=== PATIENT | female | born 1990 | race Caucasian/White ===

== ENCOUNTER → 2016-08-30 | Outpatient (CLI) | payer BC ==
[2016-08-30 09:07] LABS: CHLORIDE,CL 104 mmol/L (98-110); SODIUM,NA 135 mmol/L (136-146)
== END ==
LOC: MW.CHIM 08:19
PROVIDERS: ATTEND Internal Medicine
DX: E11.9 Type 2 diabetes mellitus without complications (principal); I10 Essential (primary) hypertension
CPT/HCPCS: 36415; 80048; 83036

== ENCOUNTER 2017-08-01 08:37 | Emergency (ER) | payer BC, MEDICAID, OTHER ==
--- NOTE | 2017-08-01 09:35 | EDM.PDOC ---
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 The patient had an IUD placed last March here and [facility] and initially was having some periods but since October has not had a period with the IUD in place. Patient did not do a home test. Patient says that she has not had any symptoms such as nausea vomiting breast tenderness or movement. She has no abdominal pain whatsoever and has no STD risks. She has had no irregular vaginal bleeding or discharge. She is eating and drinking normally and has no systemic complaints. Is here because she is concerned about . Review of systems: As per history of present illness and below otherwise all systems reviewed and negative. Past medical history: As per history of present illness and as reviewed below otherwise noncontributory. Surgical history: As per history of present illness and as reviewed below otherwise noncontributory. Social history: No reported history of drug or alcohol abuse. Family history: As per history of present illness and as reviewed below otherwise noncontributory. Physical exam: Gen.: Well-developed well-nourished obese female who is nontoxic and moves easily in the ED. Vital signs of an reviewed by me HEENT: Atraumatic, normocephalic, negative for conjunctival pallor or scleral icterus, mucous membranes moist, throat clear, neck supple, nontender, trachea midline. Lungs: Clear to auscultation, breath sounds equal bilaterally, chest nontender. Heart: S1S2, regular rate and rhythm no overt murmurs Abdomen: Soft, nondistended, nontender. Negative for masses or hepatosplenomegaly. NABS Pelvis: Stable nontender. Genitourinary: Deferred. Rectal: Deferred. Extremities: Atraumatic, negative for cords or calf pain. Neurovascular unremarkable. Neuro: Awake, alert, oriented. Cranial nerves II through XII unremarkable. Cerebellum unremarkable. Motor and sensory unremarkable throughout. Exam nonfocal. 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 She agrees with proceeding to do the ultrasound at this point as her dates are unknown and she will be available once that result is available. 1020: Ultrasound contacted me immediately after bringing the patient back and tells me that the patient is a term 37-1/2 weeks. Patient is aware of this test result and I have visually inspected her perineum which demonstrates no evidence of any cord prolapse or any body parts and there is clear fluid on the perineum and no gross bleeding. Sandy Snyder was recontacted and the patient will go to labor and delivery immediately. UA and quantitative hCG results are unavailable at this time but the patient will be immediately moved to labor and delivery. Formal ultrasound results is also not available at this time but can be followed up on L&D. Impression: Term with history of IUD Definitive disposition and diagnosis as appropriate pending reevaluation and review of above. - Related Data Allergies Allergy/AdvReac Type Severity Reaction Status Date / Time Penicillins Allergy Nausea Verified 08/01/17 09:08 Home Meds: Home Meds . 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 ED EXAM, GENERAL - Physical Exam Exam: See Below (See dictation) Course - Vital Signs Last Recorded V/S: Last Vital Signs Temp 36.4 C 08/01/17 09:05 Pulse 98 08/01/17 09:05 Resp 18 08/01/17 09:05 BP 171/96 H 08/01/17 09:05 Pulse Ox 98 08/01/17 09:05 - Orders/Labs/Meds Orders: Active Orders 24 hr Category Date Time Status OB 2 Or 3 Tri Sgl 1st Gest [US] Stat Exams 08/01/17 09:37 Ordered HCG QUANTITATIVE,SERUM [CHEM] Stat Lab 08/01/17 09:46 Received UA W/MICROSCOPIC [URIN] Stat Lab 08/01/17 09:36 Ordered Labs: Laboratory Tests 08/01/17 08/01/17 Range/Units 09:14 09:46 WBC 10.00 (4.0-11.0) K/uL RBC 5.14 (4.30-5.90) M/uL Hgb 14.3 (12.0-16.0) g/dL Hct 40.9 (36.0-46.0) % MCV 79.6 L (80.0-98.0) fL MCH 27.8 (27.0-32.0) pg MCHC 35.0 (31.0-37.0) g/dL RDW Std Deviation 39.2 (28.0-62.0) fl RDW Coeff of Adolfo 14 (11.0-15.0) % Plt Count 178 (150-400) K/uL MPV 10.50 (7.40-12.00) fL Neut % (Auto) 68.9 (48.0-80.0) % Lymph % (Auto) 24.0 (16.0-40.0) % [place] % (Auto) 6.4 (0.0-15.0) % Eos % (Auto) 0.6 (0.0-7.0) % Baso % (Auto) 0.1 (0.0-1.5) % Neut # (Auto) 6.9 H (1.4-5.7) K/uL Lymph # (Auto) 2.4 (0.6-2.4) K/uL [place] # (Auto) 0.6 (0.0-0.8) K/uL Eos # (Auto) 0.1 (0.0-0.7) K/uL Baso # (Auto) 0.0 (0.0-0.1) K/uL Nucleated RBC % 0.0 /100WBC Nucleated RBCs # 0 K/uL Urine HCG, Qual POSITIVE (NEGATIVE) Departure - Departure Time of Disposition: 10:22 Disposition: DC/Tfer to Other 70 Condition: Good Clinical Impression: Term - Discharge Information Referrals: PCP,None [Primary Care Provider] - Forms: ED Department Discharge - My Orders Last 24 Hours: My Active Orders 08/01/17 09:36 UA W/MICROSCOPIC [URIN] Stat 08/01/17 09:37 OB 2 Or 3 Tri Sgl 1st Gest [US] Stat 08/01/17 09:46 HCG QUANTITATIVE,SERUM [CHEM] Stat - Assessment/Plan Last 24 Hours: My Active Orders 08/01/17 09:36 UA W/MICROSCOPIC [URIN] Stat 08/01/17 09:37 OB 2 Or 3 Tri Sgl 1st Gest [US] Stat 08/01/17 09:46 HCG QUANTITATIVE,SERUM [CHEM] Stat
--- NOTE | 2017-08-01 11:08 | US ---
Pelvic/OB sonogram History: Ruptured membranes I needs: Single living intrauterine fetus in vertex presentation, brow down with an anterior placenta and no evidence of central previa. measurements are internally concordant and calculated to be 7 weeks 5 days. Estimated weight is 3458 g. Is a paucity of amniotic fluid, which would be exp ected. JAEL is only 5.97. The normal active heart rate of 147 bpm. Impression: Term fetus in vertex presentation as described. Paucity of amniotic fluid consistent with ruptured membranes
== END 2017-08-01 10:24 | disposition other institution (70) ==
LOC: MW.ED 08:37
DX: O80 Encounter for full-term uncomplicated delivery (principal); O24.113 Pre-existing type 2 diabetes mellitus, in pregnancy, third trimester; E11.9 Type 2 diabetes mellitus without complications; O99.333 Smoking (tobacco) complicating pregnancy, third trimester; F17.210 Nicotine dependence, cigarettes, uncomplicated; Z88.0 Allergy status to penicillin; Z3A.37 37 weeks gestation of pregnancy
CPT/HCPCS: 36415; 76805; 76805-26; 81025; 84702; 85025; 99284; 99284-25

== ENCOUNTER 2017-08-01 11:08 | Inpatient (IN) | payer BC, MEDICAID, OTHER ==
[2017-08-01] MEDS ORDERED: NIFEdipine 10 MG Cap PO PRN (11:23)
[2017-08-01] MEDS ORDERED: Water For Irrigation,Sterile 1,000 ML Container IRR PRN (11:43)
[2017-08-01] MEDS ORDERED: Sodium Chloride 0.9% 10 ML Syringe FLUSH PRN (11:43)
[2017-08-01] MEDS ORDERED: Misoprostol 200 MCG Tab PO PRN (11:43)
[2017-08-01] MEDS ORDERED: Lidocaine 1% 50 ML MDV INJECT PRN (11:43)
[2017-08-01] MEDS ORDERED: Nalbuphine 10 MG/1 ML Vial IVPUSH PRN (11:43)
[2017-08-01] MEDS ORDERED: Carboprost Tromethamine 250 MCG/1 ML Amp IM PRN (11:43)
[2017-08-01] MEDS ORDERED: Sodium Chloride 0.9% 2.5 ML Syringe FLUSH PRN (11:43)
[2017-08-01] MEDS ORDERED: Butorphanol 1 MG/ML SDV IVPUSH PRN (11:43)
[2017-08-01] MEDS ORDERED: Methylergonovine 0.2 MG/1 ML Amp IM PRN (11:43)
[2017-08-01] MEDS ORDERED: Oxytocin/0.9 % Sodium Chloride 30 UNIT/500 ML BAG IV SCH (11:45)
[2017-08-01] MEDS ORDERED: Clindamycin Phosphate in D5W 900 MG in Premix Bag 1 BAG IV SCH ×2 (11:45)
[2017-08-01] MEDS ORDERED: Lactated Ringers 1,000 ML IV SCH (11:45)
[2017-08-01] MEDS ORDERED: Clindamycin Phosphate in D5W 50 ML IV ONE (11:52)
[2017-08-01] MEDS ORDERED: fentaNYL 100 MCG/2 ML SDV ONE (12:58)
[2017-08-01] MEDS ORDERED: ePHEDrine 50 MG/ML SDV ONE (13:21)
--- NOTE | 2017-08-01 13:38 | PCM.PREANE ---
Preanesthetic Assessment - Anesthesia/Transfusion/Family Hx Anesthesia History: Prior Anesthesia Without Reaction - Review of Systems General: No Symptoms Pulmonary: No Symptoms Cardiovascular: No Symptoms Gastrointestinal: No Symptoms Neurological: No Symptoms Other: Reports: None - Physical Assessment Blood Pressure: 143/93 Vital Signs: Last Vital Signs Temp Pulse Resp BP 143/93 H 08/01/17 12:01 Pulse Ox Height: 5 ft 5 in Weight: 142.882 kg ASA Class: 3 Mental Status: Alert & Oriented x3 Airway Class: Mallampati = 2 Dentition: Reports: Normal Dentition Thyro-Mental Finger Breadths: 3 Mouth Opening Finger Breadths: 3 ROM/Head Extension: Limited/Partial Lungs: Clear to Auscultation, Normal Respiratory Effort Cardiovascular: Regular Rate, Regular Rhythm - Lab Values: Laboratory Last Values POC Glucose 91 mg/dL (60-110) 08/01/17 12:30 Hemoglobin A1c 7.1 % (0.0-6.0) H 08/01/17 12:05 Membrane Rupture POSITIVE 08/01/17 11:01 HIV 1&2 Ag/Ab, 4th Gen 0.1 (<1.0) 08/01/17 12:05 Blood Type A POSITIVE 08/01/17 12:05 Antibody Screen NEGATIVE 08/01/17 12:05 - Allergies Allergies/Adverse Reactions: Allergies Allergy/AdvReac Type Severity Reaction Status Date / Time Penicillins Allergy Nausea Verified 08/01/17 09:08 - Anesthesia Plan Free Text/Narrative:: Pt arrived today in labor, no care as she did not know she was . 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 [No Known Home Meds] 08/01/17 [History] - CURRENT (IN HOUSE) MEDS Current Meds: Current Medications Butorphanol Tartrate (Stadol) 1 mg IVPUSH Q1H PRN PRN Reason: Pain Last Admin: 08/01/17 12:21 Dose: 1 mg Carboprost Tromethamine (Hemabate Ds) 250 mcg IM ASDIRECTED PRN PRN Reason: Post Hemorrhage Clindamycin Phosphate 900 mg/ (Premix) 50 mls @ 100 mls/hr IV Q8H ONIEL Last Admin: 08/01/17 12:06 Dose: 100 mls/hr Lactated Ringer's (Ringers, Lactated) 1,000 mls @ 150 mls/hr IV ASDIRECTED ONIEL Oxytocin/Sodium Chloride (Oxytocin 30 Unit/500 Ml-Ns) 30 unit in 500 mls @ 500 mls/hr IV TITRATE ONIEL Lidocaine HCl (Xylocaine 1%) 50 ml INJECT .ONCE PRN PRN Reason: Laceration repair Methylergonovine Maleate (Methergine) 0.2 mg IM ASDIRECTED PRN PRN Reason: Post Hemorrhage Misoprostol (Cytotec) 200 mcg PO .ONCE PRN PRN Reason: Post Hemorrhage Nalbuphine HCl (Nubain) 10 mg IVPUSH Q1H PRN PRN Reason: Pain (severe 7-10) Nifedipine (Procardia) 30 mg PO BID PRN PRN Reason: Hypertension Last Admin: 08/01/17 12:01 Dose: 30 mg Sodium Chloride (Saline Flush) 10 ml FLUSH ASDIRECTED PRN PRN Reason: Keep Vein Open Sodium Chloride (Saline Flush) 2.5 ml FLUSH ASDIRECTED PRN PRN Reason: Keep Vein Open Sterile Water (Sterile Water For Irrigation) 1,000 ml IRR ASDIRECTED PRN PRN Reason: delivery Discontinued Medications Ephedrine Sulfate (Ephedrine Sulfate) Confirm Administered Dose 50 mg .ROUTE .STK-MED ONE Stop: 08/01/17 13:22 Fentanyl (Sublimaze) Confirm Administered Dose 100 mcg .ROUTE .STK-MED ONE Stop: 08/01/17 12:59 Clindamycin Phosphate (Cleocin In D5w) Confirm Administered Dose 50 mls @ as directed IV .STK-MED ONE Stop: 08/01/17 11:53
[2017-08-01] MEDS ORDERED: Ibuprofen 400 MG Tab PO PRN (13:58)
[2017-08-01] MEDS ORDERED: Docusate Sodium 100 MG Cap PO PRN (13:58)
[2017-08-01] MEDS ORDERED: oxyCODONE 5 MG Tab PO PRN (13:58)
[2017-08-01] MEDS ORDERED: Lanolin 100% Cream 7 GM Tube TOP PRN (13:58)
[2017-08-01] MEDS ORDERED: Acetaminophen 500 MG Tab PO PRN ×2 (13:58)
[2017-08-01] MEDS ORDERED: Benzocaine/Menthol 20%-0.5% Spray 78 GM Cannister TOP PRN (13:58)
[2017-08-01] MEDS ORDERED: Witch Hazel Medicated Pads 40/Jar TOP PRN (13:58)
[2017-08-01] MEDS ORDERED: Bisacodyl 10 MG Supp RECTAL PRN (13:58)
[2017-08-01] MEDS ORDERED: Ibuprofen 800 MG Tab PO PRN (13:58)
--- NOTE | 2017-08-01 14:05 | PCM.LDHP ---
L&D History of Present Illness - General Date of Service: 08/01/17 Admit Problem/Dx: Admission Diagnosis/Problem Admission Diagnosis/Problem 08/01/17 14:00 27yo Comes to the ER today due to feeling funny and having a gush of fluid at 0645 this am. Ultrasound in ER noted SIUP 39 2/7 cephalic presentation. Trans to L&D. OB labs drawn. PCN allergy and Clindamycin given for GBS unknown. Pt is a Type II DM untreated, daily smoker, last smoked THC 5 mon ago, and ETOH occ. EDC by [employer] u/[facility] 01/03/2018. Reports did not know she was . Source of Information: Patient History Limitations: Reports: No Limitations - History of Present Illness Improves with: Reports: None Worsens with: Reports: None Associated Symptoms: Reports: N - Related Data Allergies/Adverse Reactions: Allergies Allergy/AdvReac Type Severity Reaction Status Date / Time Penicillins Allergy Nausea Verified 08/01/17 09:08 Home Medications: Home Meds . 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: Musculoskeletal History: Reports: None Neurological History: Reports: None Psychiatric History: Reports: None Endocrine/Metabolic History: Reports: Diabetes, Type II, Obesity/BMI 30+ (Super Morbid Obesity) Hematologic History: Reports: None Immunologic History: Reports: None Oncologic (Cancer) History: Reports: None Dermatologic History: Reports: None Social & Family History - Family History Family Medical History: Noncontributory - Tobacco Use Smoking Status *Q: Current Some Day Smoker Years of Tobacco use: 6 Packs/Tins Daily: 0.2 - Caffeine Use Caffeine Use: Reports: Soda - Recreational Drug Use Recreational Drug Use: No H&P Review of Systems - Review of Systems: Review Of Systems: See Below General: Reports: No Symptoms HEENT: Reports: No Symptoms Pulmonary: Reports: No Symptoms Cardiovascular: Reports: No Symptoms Gastrointestinal: Reports: No Symptoms Genitourinary: Reports: No Symptoms Musculoskeletal: Reports: No Symptoms Skin: Reports: No Symptoms Psychiatric: Reports: No Symptoms Neurological: Reports: No Symptoms Hematologic/Lymphatic: Reports: No Symptoms Immunologic: Reports: No Symptoms L&D Exam - Exam Exam: See Below - Vital Signs Vital Signs: Last Vital Signs Temp Pulse Resp BP 143/93 H 08/01/17 13:38 Pulse Ox Weight: 142.882 kg - OB Specific Contraction Intensity: Mild to Moderate Movement: Active Heart Tones: Present Heart Rate (FHR) Variability: Moderate (6-25 bmp) Presentation: Vertex (pre todays ultrasound) - Lopez Score Lopez Score Cervix Position: Anterior Lopez Score Consistency: Soft Lopez Score Effacement: >80% Lopez Score Dilation: 3-4 cm Lopez Score Infant's Station: -2 Lopez Score Total: 10 - Exam General: Alert, Oriented, Cooperative HEENT: Hearing Intact Lungs: Clear to Auscultation, Normal Respiratory Effort Cardiovascular: Regular Rate, Regular Rhythm, Normal S1, Normal S2 GI/Abdominal Exam: Soft, Non-Tender, No Organomegaly (gravid) Rectal Exam: Deferred Genitourinary: Normal external exam, Cervical dilitation Back Exam: Full Range of Motion Extremities: Normal Range of Motion, Non-Tender, No Pedal Edema, Normal Capillary Refill Skin: Warm, Dry, Intact Neurological: Reflexes Equal Bilateral, Normal Gait, Normal Speech, Normal Tone Psychiatric: Alert, Normal Affect, Normal Mood - Patient Data Lab Results Last 24 hrs: Laboratory Results - last 24 hr 08/01/17 08/01/17 08/01/17 Range/Units 11:01 12:05 12:05 POC Glucose (60-110) mg/dL Hemoglobin A1c (0.0-6.0) % Membrane Rupture POSITIVE HIV 1&2 Ag/Ab, 4th Gen 0.1 (<1.0) Blood Type A POSITIVE Antibody Screen NEGATIVE 08/01/17 08/01/17 Range/Units 12:05 12:30 POC Glucose 91 (60-110) mg/dL Hemoglobin A1c 7.1 H (0.0-6.0) % Membrane Rupture HIV 1&2 Ag/Ab, 4th Gen (<1.0) Blood Type Antibody Screen - Problem List (1) Supervision of normal IUP (intrauterine ) in multigravida SNOMED Code(s): 100312459, 602807002 ICD Code: Z34.80 - ENCOUNTER FOR SUPRVSN OF NORMAL , UNSP TRIMESTER Status: Acute Priority: High Current Visit: Yes Qualifiers: Trimester: third trimester Qualified Code(s): Z34.83 - Encounter for supervision of other normal , third trimester (2) SROM (spontaneous rupture of membranes) SNOMED Code(s): 862935414 ICD Code: [id number] - Status: Acute Priority: High Current Visit: Yes Problem List Initiated/Reviewed/Updated: Yes Orders Last 24hrs: Active Orders 24 hr Category Date Time Status Blood Glucose Check, Bedside [RC] ASDIRECTED Care 08/01/17 11:26 Inactive Heart Tones [RC] CONTINUOUS Care 08/01/17 11:43 Inactive Non Stress Test [RC] PER UNIT ROUTINE Care 08/01/17 11:43 Inactive May Shower [RC] ASDIRECTED Care 08/01/17 11:43 Inactive May Shower [RC] ASDIRECTED Care 08/01/17 13:58 Ordered Notify Provider [RC] PRN Care 08/01/17 11:43 Inactive Up ad Apryl [RC] ASDIRECTED Care 08/01/17 11:43 Inactive Up ad Apryl [RC] ASDIRECTED Care 08/01/17 13:58 Ordered Vaginal Exam [RC] PRN Care 08/01/17 11:43 Inactive Vital Signs [RC] PER UNIT ROUTINE Care 08/01/17 11:43 Inactive Vital Signs [RC] PER UNIT ROUTINE Care 08/01/17 13:58 Ordered Regular Diet [DIET] Diet 08/01/17 Dinner Ordered HEPATITIS B SURFACE ANTIGEN [REF] Routine Lab 08/01/17 12:05 Stop Req RPR [REF] Routine Lab 08/01/17 12:05 Stop Req RUBELLA ANTIBODY, IGG [REF] Routine Lab 08/01/17 12:05 Stop Req Acetaminophen [Tylenol Extra Strength] Med 08/01/17 13:58 Ordered 1,000 mg PO Q4H PRN Acetaminophen [Tylenol Extra Strength] Med 08/01/17 13:58 Ordered 500 mg PO Q4H PRN Benzocaine/Menthol [Dermoplast Pain Relief 20%-0.5% Med 08/01/17 13:58 Ordered [place]] 78 gm TOP ASDIRECTED PRN Bisacodyl [Dulcolax] Med 08/01/17 13:58 Ordered 10 mg RECTAL .ONCE PRN Docusate Sodium [Colace] Med 08/01/17 13:58 Ordered 100 mg PO BID PRN Ibuprofen [Motrin] Med 08/01/17 13:58 Ordered 400 mg PO Q4H PRN Ibuprofen [Motrin] Med 08/01/17 13:58 Ordered 800 mg PO Q6H PRN Lanolin [Lansinoh HPA] Med 08/01/17 13:58 Ordered See Dose Instructions TOP ASDIRECTED PRN NIFEdipine [Procardia XL] Med 08/01/17 21:00 Ordered 30 mg PO BEDTIME Witch Jagruti [Tucks] Med 08/01/17 13:58 Ordered 1 pad TOP ASDIRECTED PRN oxyCODONE Med 08/01/17 13:58 Ordered 5 mg PO Q2H PRN Assess Lochia [WOMSER] Per Unit Routine Oth 08/01/17 13:58 Ordered Assess Uterine Involution [WOMSER] Per Unit Routine Oth 08/01/17 13:58 Ordered Peripheral IV Discontinue [OM.PC] Routine Oth 08/01/17 13:58 Ordered Resuscitation Status Routine Resus Stat 08/01/17 13:58 Ordered Assessment/Plan Comment:: Admit SROM A: 27yo Comes to the ER today due to feeling funny and having a gush of fluid at 0645 this am. Ultrasound in ER noted SIUP 39 2/7 cephalic presentation. Trans to L&D. OB labs drawn. PCN allergy and Clindamycin given for GBS unknown. Pt is a Type II DM untreated, daily smoker, last smoked THC 5 mon ago, and ETOH occ. EDC by [facility] u/s 01/03/2018. Reports did not know she was . P: Admit, OB labs, Clindomycin for GBS unknown, anticipate
--- NOTE | 2017-08-01 14:13 | PCM.DEL ---
L & D Note - General Info Date of Service: 08/01/17 Mother's Due Date: 08/06/17 - Delivery Note Labor: Spontaneous Delivery Outcome: Livebirth Infant Delivery Method: Spontaneous Vaginal Delivery-Single Infant Delivery Mode: Spontaneous Presentation: Vertex (pre todays ultrasound) Nuchal Cord: Present Anesthesia Type: Intrathecal Amniotic Fluid Description: Clear Episiotomy Type: None Laceration: 1st Degree, Perineal Suture type: Vicryl Suture size: 3-0 Placenta: Intact, Spontaneous Cord: 3 Vessels Estimated Blood Loss: 150 Resuscitation Needed: No : Stimulated Provider: Liseth Harris Score 1 min: 7 Score 5 min: 8 Post Delivery Events: Other (see below) (Tight shoulders, Dr Love called to assist with delivery, time from head to body delivery less than [address] Harris (peds) at for delivery) Second Stage Interventions: Reports: Pushing Effectively, Pushing, McRobert's Position - General Info Date of Service: 08/01/17 Admission Dx/Problem (Free Text): Admission Diagnosis/Problem Admission Diagnosis/Problem 08/01/17 14:00 27yo Comes to the ER today due to feeling funny and having a gush of fluid at 0645 this am. Ultrasound in ER noted SIUP 39 2/7 cephalic presentation. Trans to L&D. OB labs drawn. PCN allergy and Clindamycin given for GBS unknown. Pt is a Type II DM untreated, daily smoker, last smoked THC 5 mon ago, and ETOH occ. EDC by todays u/s 01/03/2018. Reports did not know she was . Functional Status: Reports: Pain Controlled, Tolerating Diet - Review of Systems General: Reports: No Symptoms HEENT: Reports: No Symptoms Pulmonary: Reports: No Symptoms Cardiovascular: Reports: No Symptoms Gastrointestinal: Reports: No Symptoms Genitourinary: Reports: No Symptoms Musculoskeletal: Reports: No Symptoms Skin: Reports: No Symptoms Neurological: Reports: No Symptoms Psychiatric: Reports: No Symptoms - Patient Data Vitals - Most Recent: Last Vital Signs Temp Pulse Resp BP 143/93 H 08/01/17 13:38 Pulse Ox Weight - Most Recent: 142.882 kg Lab Results Last 24 Hours: Laboratory Results - last 24 hr 08/01/17 08/01/17 08/01/17 Range/Units 11:01 12:05 12:05 POC Glucose (60-110) mg/dL Hemoglobin A1c (0.0-6.0) % Membrane Rupture POSITIVE HIV 1&2 Ag/Ab, 4th Gen 0.1 (<1.0) Blood Type A POSITIVE Antibody Screen NEGATIVE 08/01/17 08/01/17 Range/Units 12:05 12:30 POC Glucose 91 (60-110) mg/dL Hemoglobin A1c 7.1 H (0.0-6.0) % Membrane Rupture HIV 1&2 Ag/Ab, 4th Gen (<1.0) Blood Type Antibody Screen Med Orders - Current: Current Medications Acetaminophen (Tylenol Extra Strength) 500 mg PO Q4H PRN PRN Reason: Pain Acetaminophen (Tylenol Extra Strength) 1,000 mg PO Q4H PRN PRN Reason: Pain Benzocaine/Menthol (Dermoplast Pain Relief 20%-0.5% [place]) 78 gm TOP ASDIRECTED PRN PRN Reason: Perineal Comfort Measure Bisacodyl (Dulcolax) 10 mg RECTAL .ONCE PRN PRN Reason: Constipation Docusate Sodium (Colace) 100 mg PO BID PRN PRN Reason: Constipation Emollient Ointment (Lansinoh Hpa) 0 gm TOP ASDIRECTED PRN PRN Reason: Sore Nipples Ibuprofen (Motrin) 400 mg PO Q4H PRN PRN Reason: Pain Ibuprofen (Motrin) 800 mg PO Q6H PRN PRN Reason: Pain Nifedipine (Procardia Xl) 30 mg PO BEDTIME [facility] Oxycodone HCl (Oxycodone) 5 mg PO Q2H PRN PRN Reason: Pain Witch Jagruti (Tucks) 1 pad TOP ASDIRECTED PRN PRN Reason: comfort care Discontinued Medications Butorphanol Tartrate (Stadol) 1 mg IVPUSH Q1H PRN PRN Reason: Pain Last Admin: 08/01/17 12:21 Dose: 1 mg Carboprost Tromethamine (Hemabate Ds) 250 mcg IM ASDIRECTED PRN PRN Reason: Post Hemorrhage Ephedrine Sulfate (Ephedrine Sulfate) Confirm Administered Dose 50 mg .ROUTE .STK-MED ONE Stop: 08/01/17 13:22 Fentanyl (Sublimaze) Confirm Administered Dose 100 mcg .ROUTE .STK-MED ONE Stop: 08/01/17 12:59 Clindamycin Phosphate 900 mg/ (Premix) 50 mls @ 100 mls/hr IV Q8H [facility] Last Admin: 08/01/17 12:06 Dose: 100 mls/hr Lactated Ringer's (Ringers, Lactated) 1,000 mls @ 150 mls/hr IV ASDIRECTED [facility] Oxytocin/Sodium Chloride (Oxytocin 30 Unit/500 Ml-Ns) 30 unit in 500 mls @ 500 mls/hr IV TITRATE [facility] Clindamycin Phosphate (Cleocin In D5w) Confirm Administered Dose 50 mls @ as directed IV .STK-MED ONE Stop: 08/01/17 11:53 Lidocaine HCl (Xylocaine 1%) 50 ml INJECT .ONCE PRN PRN Reason: Laceration repair Methylergonovine Maleate (Methergine) 0.2 mg IM ASDIRECTED PRN PRN Reason: Post Hemorrhage Misoprostol (Cytotec) 200 mcg PO .ONCE PRN PRN Reason: Post Hemorrhage Nalbuphine HCl (Nubain) 10 mg IVPUSH Q1H PRN PRN Reason: Pain (severe 7-10) Nifedipine (Procardia) 30 mg PO BID PRN PRN Reason: Hypertension Last Admin: 08/01/17 12:01 Dose: 30 mg Sodium Chloride (Saline Flush) 10 ml FLUSH ASDIRECTED PRN PRN Reason: Keep Vein Open Sodium Chloride (Saline Flush) 2.5 ml FLUSH ASDIRECTED PRN PRN Reason: Keep Vein Open Sterile Water (Sterile Water For Irrigation) 1,000 ml IRR ASDIRECTED PRN PRN Reason: delivery - Exam General: Alert, Oriented, Cooperative, No Acute Distress Lungs: Normal Respiratory Effort (Female) Exam: Normal External Exam, Normal Bimanual Exam, Vaginal Bleeding, Vaginal Lesions Back Exam: Full Range of Motion Extremities: Normal Range of Motion, Non-Tender, No Pedal Edema, Normal Capillary Refill Skin: Warm, Dry, Intact Wound/Incisions: Healing Well Neurological: No New Focal Deficit, Normal Speech, Normal Tone Psy/Mental Status: Alert, Normal Affect, Normal Mood - Problem List & Annotations (1) Supervision of normal IUP (intrauterine ) in multigravida SNOMED Code(s): 965122448, 406218602 Code(s): Z34.80 - ENCOUNTER FOR SUPRVSN OF NORMAL , UNSP TRIMESTER Status: Acute Priority: High Current Visit: Yes Qualifiers: Trimester: third trimester Qualified Code(s): Z34.83 - Encounter for supervision of other normal , third trimester (2) SROM (spontaneous rupture of membranes) SNOMED Code(s): 390094979 Code(s): HXS9219 - Status: Acute Priority: High Current Visit: Yes - Problem List Review Problem List Initiated/Reviewed/Updated: Yes - My Orders Last 24 Hours: My Active Orders 08/01/17 11:26 Blood Glucose Check, Bedside [RC] ASDIRECTED 08/01/17 11:43 Heart Tones [RC] CONTINUOUS Non Stress Test [RC] PER UNIT ROUTINE May Shower [RC] ASDIRECTED Notify Provider [RC] PRN Up ad Apryl [RC] ASDIRECTED Vaginal Exam [RC] PRN Vital Signs [RC] PER UNIT ROUTINE 08/01/17 12:05 HEPATITIS B SURFACE ANTIGEN [REF] Routine RPR [REF] Routine RUBELLA ANTIBODY, IGG [REF] Routine 08/01/17 13:58 May Shower [RC] ASDIRECTED Up ad Apryl [RC] ASDIRECTED Vital Signs [RC] PER UNIT ROUTINE Acetaminophen [Tylenol Extra Strength] 1,000 mg PO Q4H PRN Acetaminophen [Tylenol Extra Strength] 500 mg PO Q4H PRN Benzocaine/Menthol [Dermoplast Pain Relief 20%-0.5% [place]] 78 gm TOP ASDIRECTED PRN Bisacodyl [Dulcolax] 10 mg RECTAL .ONCE PRN Docusate Sodium [Colace] 100 mg PO BID PRN Ibuprofen [Motrin] 400 mg PO Q4H PRN Ibuprofen [Motrin] 800 mg PO Q6H PRN Lanolin [Lansinoh HPA] See Dose Instructions TOP ASDIRECTED PRN Witch Jagruti [Tucks] 1 pad TOP ASDIRECTED PRN oxyCODONE 5 mg PO Q2H PRN Assess Lochia [WOMSER] Per Unit Routine Assess Uterine Involution [WOMSER] Per Unit Routine Peripheral IV Discontinue [OM.PC] Routine Resuscitation Status Routine 08/01/17 21:00 NIFEdipine [Procardia XL] 30 mg PO BEDTIME 02/02/18 Dinner Regular Diet [DIET] - Plan Plan:: Admit SROM A: 27yo Comes to the ER today due to feeling funny and having a gush of fluid at 0645 this am. Ultrasound in ER noted SIUP 39 2/7 cephalic presentation. Trans to L&D. OB labs drawn. PCN allergy and Clindamycin given for GBS unknown. Pt is a Type II DM untreated, daily smoker, last smoked THC 5 mon ago, and ETOH occ. EDC by todays u/s 01/03/2018. Reports did not know she was . P: Admit, OB labs, Clindomycin for GBS unknown, anticipate Delivery A: of viable male, APGARS 7/8, Wt: 9lb 0oz. 1st degree perineal lac with repair, EBL 150ml, Stable, mother handling news of and delivery all in one day well. P: Routine pp plan of care
[2017-08-01] MEDS ORDERED: NIFEdipine 30 MG Tab.ER PO SCH (21:00)
--- NOTE | 2017-08-02 08:57 | PCM.DCSUM1 ---
Discharge Summary - Hospital Course Free Text/Narrative:: Discharge home with . Follow up 6 weeks or sooner if needed. - Discharge Data Discharge Date: 08/02/17 Discharge Disposition: Home, Self-Care 01 Condition: Good - Discharge Diagnosis/Problem(s) (1) Supervision of normal IUP (intrauterine ) in multigravida SNOMED Code(s): 223379799, [id number] ICD Code: Z34.80 - ENCOUNTER FOR SUPRVSN OF NORMAL , UNSP TRIMESTER Status: Acute Priority: High Current Visit: Yes Qualifiers: Trimester: third trimester Qualified Code(s): Z34.83 - Encounter for supervision of other normal , third trimester (2) SROM (spontaneous rupture of membranes) SNOMED Code(s): 269351096 ICD Code: [id number] - Status: Acute Priority: High Current Visit: Yes - Patient Instructions Diet: Usual Diet as Tolerated Activity: As Tolerated, No Strenuous Activities, Rest and Relax Today Driving: May Drive Today Showering/Bathing: May Shower Notify Provider of: Fever, Increased Pain, Nausea and/or Vomiting Other/Special Instructions: Discharge home with infant. Follow up 6 weeks or sooner if needed. - Discharge Plan Home Medications: Home Meds . [No Known Home Meds] 08/01/17 [History] - General Info Date of Service: 08/02/17 Admission Dx/Problem (Free Text: Admission Diagnosis/Problem Admission Diagnosis/Problem 08/01/17 14:00 27yo Comes to the ER today due to feeling funny and having a gush of fluid at 0645 this am. Ultrasound in ER noted SIUP 39 2/7 cephalic presentation. Trans to L&D. OB labs drawn. PCN allergy and Clindamycin given for GBS unknown. Pt is a Type II DM untreated, daily smoker, last smoked THC 5 mon ago, and ETOH occ. EDC by todays u/s 01/03/2018. Reports did not know she was . Functional Status: Reports: Pain Controlled, Tolerating Diet, Ambulating, Urinating - Review of Systems General: Reports: No Symptoms HEENT: Reports: No Symptoms Pulmonary: Reports: No Symptoms Cardiovascular: Reports: No Symptoms Gastrointestinal: Reports: No Symptoms Genitourinary: Reports: No Symptoms Musculoskeletal: Reports: No Symptoms Skin: Reports: No Symptoms Neurological: Reports: No Symptoms Psychiatric: Reports: No Symptoms - Patient Data Vitals - Most Recent: Last Vital Signs Temp 36.5 C 08/02/17 08:00 Pulse 71 08/02/17 08:00 Resp 14 08/02/17 08:00 BP 140/72 08/02/17 08:00 Pulse Ox 97 08/02/17 08:00 Weight - Most Recent: 142.882 kg Lab Results - Last 24 hrs: Laboratory Results - last 24 hr 08/01/17 08/01/17 08/01/17 Range/Units 11:01 12:05 12:05 POC Glucose (60-110) mg/dL Hemoglobin A1c (0.0-6.0) % Membrane Rupture POSITIVE HIV 1&2 Ag/Ab, 4th Gen (<1.0) Rubella Immune Status N/A Rubella IgG Antibody EQUIVOCAL Blood Type A POSITIVE Antibody Screen NEGATIVE 08/01/17 08/01/17 08/01/17 Range/Units 12:05 12:05 12:30 POC Glucose 91 (60-110) mg/dL Hemoglobin A1c 7.1 H (0.0-6.0) % Membrane Rupture HIV 1&2 Ag/Ab, 4th Gen 0.1 (<1.0) Rubella Immune Status Rubella IgG Antibody Blood Type Antibody Screen 08/02/17 Range/Units 06:52 POC Glucose 122 H (60-110) mg/dL Hemoglobin A1c (0.0-6.0) % Membrane Rupture HIV 1&2 Ag/Ab, 4th Gen (<1.0) Rubella Immune Status Rubella IgG Antibody Blood Type Antibody Screen Med Orders - Current: Current Medications Acetaminophen (Tylenol Extra Strength) 500 mg PO Q4H PRN PRN Reason: Pain Acetaminophen (Tylenol Extra Strength) 1,000 mg PO Q4H PRN PRN Reason: Pain Last Admin: 08/01/17 17:49 Dose: 1,000 mg Benzocaine/Menthol (Dermoplast Pain Relief 20%-0.5% [place]) 78 gm TOP ASDIRECTED PRN PRN Reason: Perineal Comfort Measure Bisacodyl (Dulcolax) 10 mg RECTAL .ONCE PRN PRN Reason: Constipation Docusate Sodium (Colace) 100 mg PO BID PRN PRN Reason: Constipation Emollient Ointment (Lansinoh Hpa) 0 gm TOP ASDIRECTED PRN PRN Reason: Sore Nipples Ibuprofen (Motrin) 400 mg PO Q4H PRN PRN Reason: Pain Ibuprofen (Motrin) 800 mg PO Q6H PRN PRN Reason: Pain Nifedipine (Procardia Xl) 30 mg PO BEDTIME [facility] Last Admin: 08/01/17 20:59 Dose: 30 mg Oxycodone HCl (Oxycodone) 5 mg PO Q2H PRN PRN Reason: Pain Witch Jagruti (Tucks) 1 pad TOP ASDIRECTED PRN PRN Reason: comfort care Discontinued Medications Butorphanol Tartrate (Stadol) 1 mg IVPUSH Q1H PRN PRN Reason: Pain Last Admin: 08/01/17 12:21 Dose: 1 mg Carboprost Tromethamine (Hemabate Ds) 250 mcg IM ASDIRECTED PRN PRN Reason: Post Hemorrhage Ephedrine Sulfate (Ephedrine Sulfate) Confirm Administered Dose 50 mg .ROUTE .STK-MED ONE Stop: 08/01/17 13:22 Fentanyl (Sublimaze) Confirm Administered Dose 100 mcg .ROUTE .STK-MED ONE Stop: 08/01/17 12:59 Clindamycin Phosphate 900 mg/ (Premix) 50 mls @ 100 mls/hr IV Q8H [facility] Last Admin: 08/01/17 12:06 Dose: 100 mls/hr Lactated Ringer's (Ringers, Lactated) 1,000 mls @ 150 mls/hr IV ASDIRECTED [facility] Oxytocin/Sodium Chloride (Oxytocin 30 Unit/500 Ml-Ns) 30 unit in 500 mls @ 500 mls/hr IV TITRATE [facility] Clindamycin Phosphate (Cleocin In D5w) Confirm Administered Dose 50 mls @ as directed IV .STK-MED ONE Stop: 08/01/17 11:53 Lidocaine HCl (Xylocaine 1%) 50 ml INJECT .ONCE PRN PRN Reason: Laceration repair Methylergonovine Maleate (Methergine) 0.2 mg IM ASDIRECTED PRN PRN Reason: Post Hemorrhage Misoprostol (Cytotec) 200 mcg PO .ONCE PRN PRN Reason: Post Hemorrhage Nalbuphine HCl (Nubain) 10 mg IVPUSH Q1H PRN PRN Reason: Pain (severe 7-10) Nifedipine (Procardia) 30 mg PO BID PRN PRN Reason: Hypertension Last Admin: 08/01/17 12:01 Dose: 30 mg Sodium Chloride (Saline Flush) 10 ml FLUSH ASDIRECTED PRN PRN Reason: Keep Vein Open Sodium Chloride (Saline Flush) 2.5 ml FLUSH ASDIRECTED PRN PRN Reason: Keep Vein Open Sterile Water (Sterile Water For Irrigation) 1,000 ml IRR ASDIRECTED PRN PRN Reason: delivery - Exam General: Reports: Alert, Oriented, Cooperative, No Acute Distress Lungs: Reports: Normal Respiratory Effort GI/Abdominal Exam: Soft, Non-Tender (Female) Exam: Vaginal Bleeding Rectal (Female) Exam: Deferred Back Exam: Reports: Full Range of Motion Extremities: Normal Range of Motion, Non-Tender, No Pedal Edema, Normal Capillary Refill Skin: Reports: Warm, Dry, Intact Wound/Incisions: Reports: Healing Well Neurological: Reports: No New Focal Deficit, Normal Gait, Normal Speech, Normal Tone Psy/Mental Status: Reports: Alert, Normal Affect, Normal Mood *Q Meaningful Use (DIS) - VTE *Q VTE Criteria *Q: - Stroke *Q Stroke Criteria *Q: - AMI *Q AMI Criteria *Q:
--- NOTE | 2017-08-02 09:06 | PCM48HPAN ---
Post Anesthesia Note - EVALUATION WITHIN 48HRS OF ANESTHETIC Vital Signs in Normal Range: Yes Patient Participated in Evaluation: Yes Respiratory Function Stable: Yes Airway Patent: Yes Cardiovascular Function Stable: Yes Hydration Status Stable: Yes Pain Control Satisfactory: Yes Nausea and Vomiting Control Satisfactory: Yes Mental Status Recovered: Yes
== END 2017-08-02 16:34 | disposition home or self-care (01) | DRG 774 ==
LOC: MW.OB 11:08 → OBSVTOIN 13:33 → MW.OB 13:33
PROVIDERS: ADMIT Obstetrics & Gynecology; ATTEND Advanced Practice Midwife
PROC: 10E0XZZ Delivery of Products of Conception, External Approach (ICD-10-PCS; principal; 2017-08-01)
PROC: 0HQ9XZZ Repair Perineum Skin, External Approach (ICD-10-PCS; 2017-08-01)
DX: O42.02 Full-term premature rupture of membranes, onset of labor within 24 hours of rupture (principal); O24.12 Pre-existing type 2 diabetes mellitus, in childbirth; Z68.43 Body mass index [BMI] 50.0-59.9, adult; E11.9 Type 2 diabetes mellitus without complications; O09.33 Supervision of pregnancy with insufficient antenatal care, third trimester; O99.334 Smoking (tobacco) complicating childbirth; O70.0 First degree perineal laceration during delivery; O99.214 Obesity complicating childbirth; E66.01 Morbid (severe) obesity due to excess calories; Z3A.39 39 weeks gestation of pregnancy; Z37.0 Single live birth; Z88.0 Allergy status to penicillin
CPT/HCPCS: 01967-QZ; 36415; 59025; 59409; 76805; 76805-26; 81025; 82962; 83036; 84112; 84702; 85025; 86592; 86762; 86850; 86900; 86901; 87340; 87389; 88300; 99284; 99284-25; A9270-GY; J0595; J3010